=== PATIENT | male | born 1985 | race Caucasian/White ===

== ENCOUNTER 2022-09-21 17:00 | Outpatient (RCR) | payer SELFPAY ==
--- NOTE | 2022-07-29 18:28 | HP.PTEVAL ---
Patient's Visit Information JUSTIN VIERA is a 37 year old M referred to Physical Therapy by Dr. Duglas Marti DO with a diagnosis of BPPV. Date of Evaluation: 07/29/22 Physical Therapist: Bruce Mckeon DPT, OCS, CSCS - Visit Plan Frequency: 1-2x /Week Duration: 2-4 Weeks Plan: Pt to f/u 1-2x/week for 2-4 weeks as needed for positional treatments , exercises and checks - Subjective Tuesday afternoon got dizzy out of nowhere. Worsened and saw doctor Tuesday after noon and figured inner ear and gave antiinflammatory shot which did not help. Motion sickness pills help with nausea. Not vomitted yet. No history of this. Noticed it getting up from eating and felt lightheaded. Worse then Tuesday. Not spinning at rest, if he holds still he still feels goofy and crooked. When he moves head he feels really dizzy and can get nauseous. No VENTURA or ar ache to go with it. Better when he lies down. Better in am. Turning in bed is no worse. Worse bending over. Sleep is OK. No falls, unsteady but can do things with care. - Objective Walks safe and I but slow and hesitant. Trasnfers I,. cervical aROM WFL and UE AROM WFL. Positional: + R adn L Hallpike nakul. up torsional R and down torsional L, does not fatigue either side. Treated with MEGAN Durbin then Semnt A and Semont P. Given BD for HEP - Balance/Special Test Scores Functional Gait Assessment Score: 28 % Disability: 6.6700 Dizziness Score: 70 - Goals Goal 1:: Pt feel 100% back to normal activities without dizzyness Goal Time Frame: 2-4 Weeks Goal 2:: FGA Goal Time Frame: 2-4 Weeks - Rehabilitation Potential Physical Therapy Diagnosis: Likely BPPV, possible vest hypo also Rehabilitation Potential: Good - Anticipated Interventions Patient/Client Instruction: Educate patient on: Condition, Plan of Care For the Purpose of:: To increase ROM, To increase tolerance to activity/condition/position Therapeutic Exercise to Include: Balance training Comment: posiitonal ex and techniques For the Purpose of:: To increase tolerance to activity/condition/position, To improve safety with gait Thank you for the opportunity to evaluate your patient. For Medicare and Medicare HMO plans, please review the plan of care and approve it. It will need to be FAXED BACK to us at [phone] for Medicare purposes. For Medicare only, by signing this I certify the plan of care. Please let me know if there are questions or concerns regarding this plan of care. Physician Signature: Date:
--- NOTE | 2022-09-21 17:26 | HP.PTREVAL ---
Dr. Duglas Marti, DO, It has been my pleasure to treat JUSTIN VIERA over the last 2 visits for BPPV. Please see the progress note below for an update on the physical therapy plan of care! Subjective: Doing better, 90% better, but still gets woozy mostly with head movements for seconds. Objective/Function: FGA improved. - B hallpike nakul and roll test. MSQ not dizzy at all except mild with head shakes. Oculomotor unremakrable except VOR 30 seconds gives woozy feeling for 5 seconds. pursuit and saccades are normal. no nystagmus with gaze or head shake. - skew eye deviation. - ocular tilt. Plan Plan: f/u two weeks to progress VOR as needed and check psoitional. Extend POC 2-4 weeks for vestibular ex progression toward same goals. Fair prognosis. Balance/Gait/Functional tests - Balance/Special Test Scores Functional Gait Assessment Score: 30 % Disability: 0 Dizziness Score: 70 Goals Goal 1:: Pt feel 100% back to normal activities without dizzyness Goal Time Frame: 2-4 Weeks Goal 2:: 30/30 FGA Goal Time Frame: 2-4 Weeks Goal Progress: Goal Met Anticipated Interventions Patient/Client Instruction: Educate patient on: Condition, Plan of Care For the Purpose of:: To increase ROM, To increase tolerance to activity/condition/position Therapeutic Exercise to Include: Balance training Comment: posiitonal ex and techniques For the Purpose of:: To increase tolerance to activity/condition/position, To improve safety with gait Please do not hesitate to contact me at [phone] by phone or if you have questions or concerns regarding this new plan of care! Sincerely, Bruce Mckeon, DPT, OCS, CSCS
--- NOTE | 2022-11-22 08:21 | HP.PT.NRP ---
JUSTIN VIERA was seen in my office for initial evaluation on 07/29/22. The following Plan of Care was established for this patient: Initial Frequency: 1-2x /Week Initial Duration: 2-4 Weeks Patient/Client Instruction: Educate patient on: Condition, Plan of Care For the Purpose of:: To increase ROM, To increase tolerance to activity/condition/position Therapeutic Exercise to Include: Balance training For the Purpose of:: To increase tolerance to activity/condition/position, To improve safety with gait This patient was last seen in our office 09/21/22. Pertinent comments regarding their Physical therapy will appear below: Pt seen 2 visits of vestibular intervention and was 90% better. HE cancelled his last visit stating he didn't feel like he needed therapy anymore. I am discontinuing him from my care. At this point I will be discontinuing this patient from physical therapy. I would be happy to see this patient again in the future if found appropriate by the physician. Thank you! Bruce Mckeon, DPT, OCS, CSCS Balance/Gait/Functional tests - Balance/Special Test Scores Functional Gait Assessment Score: 30 % Disability: 0 Dizziness Score: 70
== END 2022-09-21 19:00 | disposition home or self-care (01) ==
LOC: PT 17:00
PROVIDERS: PCP Family Medicine; Referring Provider Family Medicine; Visit Provider Family Medicine
DX: H81.10 Benign paroxysmal vertigo, unspecified ear (principal)
CPT/HCPCS: 97162; 97530